=== PATIENT | female | born 1965 | race Caucasian/White ===

== ENCOUNTER 2022-05-30 03:05 | Day surgery (SDC) | payer MEDICARE, SELFPAY ==
[2022-05-20 14:54] VITALS: BMI 28.0
--- NOTE | 2022-05-20 15:06 | PC.NURSE ---
Report to the Outpatient Waiting Room, entrance under the green pavilion located off [facility], at time 6:30 on date 05/30/22. Planned Procedure Time: 8:30. Time changes happen often and if your time is changed the preop area will call you the afternoon before. - You and your visitor will be asked to self-screen and do not enter if you have any COVID symptoms. - Only one visitor is requested with a max of two and NO children visitors are allowed at this time. - The patient visitor may be requested to leave or wait in car when not with patient due to distancing restrictions. - A mask is optional within the hospital. Patients may have clear liquids (water, carbonated beverages, clear teas, apple juice) until 3 hours prior to surgery (5:30) with a maximum of 20 ounces. - No food from midnight until time of surgery Take the following medications with a SIP of water the morning of surgery: CYCLOBENZAPRINE, TIZANIDINE, BACLOFEN, ROPINIROLE, SERTRALINE, DULOXETINE, DIAZEPAM Medications to discontinue per physician: IBUPROFEN Date to take last dose: 05/22/22 (PER PT) Please no make-up, nail belarusian, hairspray, perfume, deodorant, or body powder the day of surgery. No jewelry (including any body piercings) or valuables the day of surgery, leave them at home. Please take a shower or bath the night before, or the morning of, surgery with an antibacterial soap. Wear comfortable, loose fitting clothing. - Jewelry must be removed prior to entering the operating room. Rings and piercings that are not removed may be cut off. - The hospital will not accept responsibility for valuables. - Please leave all valuables, including medications, at home the day of surgery. If you are going home after surgery, a licensed hazmat cdl a driver must drive you home. - NO public transportation without another adult if you receive anesthesia. - We recommend that an adult stay with you for 24 hours following discharge. - We also recommend that you do not drive, make important decision, drink alcoholic beverages, or take any drugs that were not prescribed by your health care provider for at least 24 hours after your discharge time. Follow any additional instructions given to you from your surgeon. If you or anyone in your household have experienced Covid symptoms in the past week, please notify your surgeon or the nurse liaison at the phone number below for possible testing. Telephone instructions given to PT - JAYESH ANGELES and asked if any additional questions and then verbalized understanding. Patient advised to call surgeon office or pre surgery nurse liaison [phone] if any additional questions.
--- NOTE | ~2022-05-30 | XR_ITS ---
Supine and upright views of the abdomen Clinical history: Lithotripsy Findings: Bowel gas pattern is nonspecific. No evidence for obstruction or free air. Curvilinear wire s are noted along the relative expected course of the proximal to mid left ureter. No definite stones identified. Osseous structures are intact. Impression: Curvilinear wires along the relatively expected course of the proximal to mid left ureter. Correlate with prior procedural history. No definite stones identified. Reviewed, dictated and finalized at location . ING ASSISTANT Impression: Curvilinear wires along the relatively expected course of the proximal to mid l eft ureter. Correlate with prior procedural history. No definite stones identified.
[2022-05-30 06:25] VITALS: BP 114/62; PULSE 70; RESP 16; TEMP 36.4; O2SAT 100
--- NOTE | 2022-05-30 06:49 | WPDHPUPDATE1 ---
History and Physical Update Update Date/Time: 05/30/22 06:49 History and Physical has been reviewed, including an updated exam of the patient. There are NO changes in the patient's condition. Risks, benefits, and alternatives have been discussed and questions answered. Patient agrees to proceed with procedure.
[2022-05-30] MEDS: LACTATED RINGERS 1,000 ML 30 ML IV CONT (07:25)
[2022-05-30 07:45] LABS: INR 1.1; Prothrombin Time 13.7 Seconds (11.1-14.7)
[2022-05-30 07:46] LABS: Partial Thromboplastin Time 29.8 SECONDS (22.3-36.8)
[2022-05-30 08:27] LABS: Appearance Urine Cloudy (Clear); Bilirubin Urine Negative (Negative); Blood Urine 3+ (Negative); Color Urine Yellow (Yellow); Glucose Urine UA Negative (Negative); Ketones Urine Negative (Negative); Leukocyte Esterase Ur 3+ LEU/UL (Negative); Nitrate Urine Negative (Negative); Protein Urine 2+ mg/dL (Negative); Specific Grav Ur >= 1.030 (1.001-1.035); Urobilinogen Urine 0.2 mg/dL (<2.0)
[2022-05-30 08:38] LABS: Calcium Oxalate Crystals Urine Present /hpf; Mucus Urine Moderate /lpf; RBC Urine >75 /hpf (0-2); Squamous Epithelial Cell Urine Many /hpf (Few); WBC Urine >75 /hpf
[2022-05-30 08:39] LABS: Add Urine Microscopic? YES
== END 2022-05-30 09:38 | disposition home or self-care (01) ==
PROVIDERS: PCP Family Medicine; Visit Provider Urology
PROC: (CPT 50590; principal; 2022-05-30 08:30)
PROC: (CPT 52352; 2022-05-30 08:30)
DX: N20.0 Calculus of kidney (principal); Z53.8 Procedure and treatment not carried out for other reasons
CPT/HCPCS: 36415; 74018; 81001; 85610; 85730; 87086; 99212; A9270; G0463; J7030; J7120

== ENCOUNTER 2022-06-27 02:52 | Day surgery (SDC) | payer MEDICARE, SELFPAY ==
[2022-06-17 10:02] VITALS: BMI 28.8
--- NOTE | 2022-06-17 10:10 | PC.NURSE ---
Report to the Outpatient Waiting Room, entrance under the green pavilion located off [facility], at time 0800 on date 06/27/22. Planned Procedure Time: 1000. Time changes happen often and if your time is changed the preop area will call you the afternoon before. - You and your visitor will be asked to self-screen and do not enter if you have any COVID symptoms. - Only one visitor is requested with a max of two and NO children visitors are allowed at this time. - The patient visitor may be requested to leave or wait in car when not with patient due to distancing restrictions. - A mask is optional within the hospital at this time. Patients may have clear liquids (water, carbonated beverages, clear teas, apple juice) until 3 hours prior to surgery with a maximum of 20 ounces. - No food from midnight until time of surgery Take the following medications with a SIP of water the morning of surgery: BACLOFEN, CYCLOBENZAPRINE, DIAZEPAM, DULOXETINE, MACROBID, ROPINIROLE, SERTRALINE, TIZANIDINE, TRAMADOL DO NOT STOP ANY OF YOUR OTHER PRESCRIPTION MEDICATIONS PRIOR TO SURGERY EXCEPT THE FOLLOWING Medications to discontinue per physician: VITAMINS/SUPPLEMENTS Date to take last dose: 06/23/22 STOP IBUPROFEN 1 WEEK PRIOR TO SURGERY Please no make-up, nail ecuadorean, hairspray, perfume, deodorant, or body powder the day of surgery. No jewelry (including any body piercings) or valuables the day of surgery, leave them at home. Please take a shower or bath the night before, or the morning of, surgery with an antibacterial soap. Wear comfortable, loose fitting clothing. - Jewelry must be removed prior to entering the operating room. Rings and piercings that are not removed may be cut off. - The hospital will not accept responsibility for valuables. - Please leave all valuables, including medications, at home the day of surgery. If you are going home after surgery, a licensed electric screw driver operator must drive you home. - NO public transportation without another adult if you receive anesthesia. - We recommend that an adult stay with you for 24 hours following discharge. - We also recommend that you do not drive, make important decision, drink alcoholic beverages, or take any drugs that were not prescribed by your health care provider for at least 24 hours after your discharge time. Follow any additional instructions given to you from your surgeon. If you or anyone in your household have experienced Covid symptoms in the past week, please notify your surgeon or the nurse liaison at the phone number below for possible testing. Telephone instructions given to DESMOND - JAYESH ANGELES and asked if any additional questions and then verbalized understanding. Patient advised to call surgeon office or pre surgery nurse liaison [phone] if any additional questions.
--- NOTE | 2022-06-25 10:48 | PM.HPGS ---
History of Present Illness History of Present Illness Consent: Risks, benefits, and alternatives have been discussed and questions answered. Patient agrees to proceed with procedure. Chief complaint: left kidney stones Narrative: Cynthia Shaw is a 56 year old female with a history of recurrent urolithiasis previously managed out state. On 1st evaluation here imaging revealed a 1.3 cm left renal stone. She was scheduled for ESWL a couple weeks ago but presented with urinary tract infection. She she now presents for left ESWL, cystoscopy with left stent placement. She is aware the risk including, not limited to, perinephric hematoma, hematuria, need for additional procedures. Review of Systems Cardiovascular: Cardiovascular: Denies chest pain, Denies lightheadedness, Denies palpitations and Denies dyspnea Respiratory: Respiratory: Denies dyspnea Gastrointestinal: Gastrointestinal: Denies diarrhea, Denies nausea and Denies vomiting Genitourinary: Genitourinary: Denies hematuria and Denies dysuria Endocrine: Endocrine: Denies palpitations PMFSH Social History Social History Smoking status: Former smoker Tobacco type: cigarettes Additional smoking assessment comments: FORMER SOME DAY/SOCIAL SMOKER Alcohol intake: former Alcohol use details: NO ALCOHOL USE SINCE MS DIAGNOSIS Substance use: current Substance use type: marijuana Living arrangements: with family Additional living arrangements comments: AUNT & COUSIN Spiritual care concerns: No Meds Home Medications and Allergies Home Medications Medication Instructions Recorded Confirmed Type baclofen 20 mg tablet 20 mg PO TID 05/20/22 06/17/22 History cyclobenzaprine 10 mg tablet 10 mg PO TID 05/20/22 06/17/22 History diazepam 5 mg tablet 5 mg PO TID 05/20/22 06/17/22 History dicyclomine 10 mg capsule 10 mg PO TID 05/20/22 06/17/22 History dimethyl fumarate 240 mg 240 mg PO BID 05/20/22 06/17/22 History capsule,delayed release (Tecfidera) duloxetine 60 mg capsule,delayed 60 mg PO DAILY 05/20/22 06/17/22 History release furosemide 20 mg tablet 20 mg PO DAILY PRN Edema 05/20/22 06/17/22 History ibuprofen 800 mg tablet 800 mg PO TID 05/20/22 06/17/22 History ropinirole 2 mg tablet 2 mg PO TID 05/20/22 06/17/22 History sertraline 50 mg tablet 50 mg PO DAILY 05/20/22 06/17/22 History tizanidine 4 mg tablet 4 mg PO TID 05/20/22 06/17/22 History tramadol 50 mg tablet 50 mg PO Q6H PRN pain #20 tabs 05/30/22 06/17/22 Rx nitrofurantoin 100 mg PO DAILY 06/17/22 06/17/22 History monohydrate/macrocrystals 100 mg capsule (Macrobid) zinc acetate 25 mg (zinc) capsule 25 mg PO DAILY 06/17/22 06/17/22 History Allergies Allergy/AdvReac Type Severity Reaction Status Date / Time codeine Allergy Swelling Verified 06/17/22 09:58 Penicillins Allergy Swelling Verified 06/17/22 09:58 Sulfa (Sulfonamide Allergy Swelling Verified 06/17/22 09:58 Antibiotics) Exam Const: General: no acute distress Resp: Effort & Inspection: normal respiratory effort GI: Inspection: non-distended GI Palp: No abdominal tenderness and No Guarding due to palpation present (GI) Auscultation: normal bowel sounds Assessment and Plan Assessment and plan (1) Left renal stone: Code(s): N20.0 - Calculus of kidney Status: Acute Assessment and Plan: Cystoscopy, left ureteral stent placement, left ESWL
[2022-06-27] VITALS (7 sets, daily range): BP systolic 107–138; BP diastolic 48–87; PULSE 68–83; RESP 16–20; TEMP 36.3–37.4; O2SAT 97–100
--- NOTE | ~2022-06-27 | XR_ITS ---
XR abdomen/kub 1V 06/27/2022 08:02 Indication: Left-sided lithotripsy. Procedure: KUB Comparison: 05/30/2022 Findings: Bowel gas pattern is nonobstructive. Moderate colonic fecal loading. No definite renal ston es are seen. There is a vascular stent located in the epigastric region. There are curvilinear wires in the left abdomen, possibly embolization coils. Lung bases unremarkable. Impression: 1: Nonobstructive bowel gas pattern. Reviewed, dictated and finalized at location B. [employer] SURVEYOR Impression: 1: Nonobstructive bowel gas pattern.
--- NOTE | 2022-06-27 06:55 | WPDHPUPDATE1 ---
History and Physical Update Update Date/Time: 06/27/22 06:55 History and Physical has been reviewed, including an updated exam of the patient. There are NO changes in the patient's condition. Risks, benefits, and alternatives have been discussed and questions answered. Patient agrees to proceed with procedure.
[2022-06-27] MEDS: LACTATED RINGERS 1,000 ML 30 ML IV CONT (09:00)
[2022-06-27 09:17] LABS: Prothrombin Time 12.7 Seconds (11.1-14.7)
[2022-06-27 09:18] LABS: Partial Thromboplastin Time 29.5 SECONDS (22.3-36.8)
--- NOTE | 2022-06-27 09:18 | WPDANESEPPF ---
Anes - Initial Pre Proc Eval Procedure: Operation Date: 06/27/22 10:00 Proposed Procedures p Left Extracorporeal Shock Wave Lithotripsy, - Pelon Orourke MD s Cystoscopy, Left Stent Placement - Pelon Orourke MD Date/Time: 06/27/22 09:18 Surgeon: Pelon Orourke MD Pre Op Diagnosis: left kidney stones Patient Data Age: 56 Gender: F Height: 1.75 m Weight: 90.4 kg Last Vital Signs Temp 37.4 C 06/27/22 09:09 Pulse 79 06/27/22 09:09 Resp 16 06/27/22 09:09 BP 119/87 06/27/22 09:09 Pulse Ox 100 06/27/22 09:09 O2 Del Method Room Air 06/27/22 09:09 Allergies Allergy/AdvReac Type Severity Reaction Status Date / Time codeine Allergy Swelling Verified 06/27/22 09:07 Penicillins Allergy Swelling Verified 06/27/22 09:07 Sulfa (Sulfonamide Allergy Swelling Verified 06/27/22 09:07 Antibiotics) Home Medications Medication Instructions Recorded Confirmed Type baclofen 20 mg tablet 20 mg PO TID 05/20/22 06/17/22 History cyclobenzaprine 10 mg tablet 10 mg PO TID 05/20/22 06/17/22 History diazepam 5 mg tablet 5 mg PO TID 05/20/22 06/17/22 History dicyclomine 10 mg capsule 10 mg PO TID 05/20/22 06/17/22 History dimethyl fumarate 240 mg 240 mg PO BID 05/20/22 06/17/22 History capsule,delayed release (Tecfidera) duloxetine 60 mg capsule,delayed 60 mg PO DAILY 05/20/22 06/17/22 History release furosemide 20 mg tablet 20 mg PO DAILY PRN Edema 05/20/22 06/17/22 History ibuprofen 800 mg tablet 800 mg PO TID 05/20/22 06/17/22 History ropinirole 2 mg tablet 2 mg PO TID 05/20/22 06/17/22 History sertraline 50 mg tablet 50 mg PO DAILY 05/20/22 06/17/22 History tizanidine 4 mg tablet 4 mg PO TID 05/20/22 06/17/22 History tramadol 50 mg tablet 50 mg PO Q6H PRN pain #20 tabs 05/30/22 06/17/22 Rx nitrofurantoin 100 mg PO DAILY 06/17/22 06/17/22 History monohydrate/macrocrystals 100 mg capsule (Macrobid) zinc acetate 25 mg (zinc) capsule 25 mg PO DAILY 06/17/22 06/17/22 History Laboratory Tests 06/27/22 08:42 PT Pending INR Pending APTT Pending Patient hx anesthesia problems: none Family hx anesthesia problems: none Results Review: All pre-operative results and documents have been reviewed as part of the pre-operative evaluation. [facility] Past Medical History Medical History (Updated 06/27/22 @ 09:19 by Bebeto Bravo MD) Multiple sclerosis Surgical History Surgical History (Updated 06/27/22 @ 09:19 by Bebeto Bravo MD) H/O: hysterectomy Social History Social History Smoking status: Former smoker Tobacco type: cigarettes Additional smoking assessment comments: FORMER SOME DAY/SOCIAL SMOKER Alcohol intake: former Alcohol use details: NO ALCOHOL USE SINCE MS DIAGNOSIS Substance use: current Substance use type: marijuana Living arrangements: with family Additional living arrangements comments: AUNT & COUSIN Spiritual care concerns: No Anes - Eval Final PreProcedure Day of Procedure 06/27/22 09:18 Patient weight: obese Heart: regular rate and rhythm Lungs: clear to auscultation Airway: Mallampati scale class II Last oral intake: >/= 8 hours ASA classification: III Emergent: no Anesthetic plan: proceed Anesthesia type and monitoring: general LMA and standard monitoring Results Review: All pre-operative results and documents have been reviewed as part of the pre-operative evaluation. Informed Consent: The patient's anesthetic plan and its attendant risks and benefits were discussed with the patient/family/POA. Questions were solicited and answers provided to the satisfaction of the patient/family/POA.
[2022-06-27] MEDS: ceFAZolin 2 GM/D5W 50 ML 2 GM/50 ML BAG IVPB (09:44)
--- NOTE | 2022-06-27 10:05 | W.PM.PROC2 ---
Procedure Note - Detailed Date of Procedure 06/27/22 Pre-op Diagnosis Left kidney stones Post-op Diagnosis Same Procedure Performed Cystoscopy, retrograde pyelography, left ESWL and left ureteral stent placement Surgeon Pelon Orourke MD Anesthesia General Description of Procedure patient is brought to the operative suite where she is prepped draped in routine sterile fashion while in a frog-leg position after the uneventful induction of a general LMA anesthetic. A 16 F flexible cystoscope was used to perform flexible cystoscopy. Bladder neck and urethra endoscopically normal. Bladder mucosa is normal and there are no intravesical foreign body or neoplasms. She has a single orthotopic orifice bilaterally. A 0.035 in glidewire was advanced into the left renal pelvis and the angiographic catheter is used to obtain left retrograde pyelography. This clearly outlines the 1.3 cm left renal pelvic stone. A total 2500 shocks using the Dornier Lithotripter are delivered at a power setting of 4. At the termination of the placed a 4.8 F variable length ureteral stent with the proximal coil in renal pelvis distal coil in the bladder. Scopes and wires removed the patient was taken recovery room having tolerated this well. Drains Yes Packing No Pathology None sent
[2022-06-27] MEDS: ONDANSETRON INJ 4 MG/2 ML VIAL IV PUSH (10:48)
== END 2022-06-27 12:19 | disposition home or self-care (01) ==
PROVIDERS: PCP Family Medicine; Visit Provider Urology
PROC: (CPT 50590; principal; 2022-06-27 10:00)
PROC: (CPT 52352; 2022-06-27 10:00)
DX: N20.0 Calculus of kidney (principal); G35 Multiple sclerosis; F12.90 Cannabis use, unspecified, uncomplicated; Z87.891 Personal history of nicotine dependence; E66.9 Obesity, unspecified; Z68.29 Body mass index [BMI] 29.0-29.9, adult
CPT/HCPCS: 52332; 50590; 36415; 74018; 85610; 85730; C1758; C1769; C2617; J0690; J1100; J2250; J2405; J2704; J3010; J7030; J7120; Q9966

== ENCOUNTER 2022-07-15 10:33 | Outpatient (CLI) | payer MEDICARE, SELFPAY ==
--- NOTE | ~2022-07-15 | XR_ITS ---
EXAMINATION: XR abdomen/kub 1V DATE: 07/15/2022 10:57 INDICATION: Kidney stones. TECHNIQUE: A supine view of the abdomen on 2 radiographs was obtained. COMPARISON: Abdomen radiographs 06/27/2012 FINDINGS: There are no dilated loops of bowel. There is a stent overlying L1-L2. There are embolizati on coils in left abdomen in the area of left ovarian vein. There is a left internal ureteral stent in expected position. There is a 2 mm stone in distal left ureter adjacent to the stent. There are phle boliths in the pelvis. IMPRESSION: 1. 2 mm stone in distal left ureter with left internal ureteral stent in expected position. Reviewed, dictated and finalized at location A. IMPRESSION: 1. 2 mm stone in distal left ureter with left internal ureteral stent in expect ed position.
== END 2022-07-15 10:34 | disposition home or self-care (01) ==
PROVIDERS: PCP Family Medicine; Visit Provider Urology
DX: N20.0 Calculus of kidney (principal)
CPT/HCPCS: 74018

== ENCOUNTER 2023-12-03 01:43 | Day surgery (SDC) | payer MEDICARE, SELFPAY ==
[2023-12-01 15:38] VITALS: BMI 29.1
--- NOTE | 2023-12-01 15:40 | PC.NURSE ---
Report to the Outpatient Waiting Room, entrance under the green pavilion located off [facility], at time _1130_ on date _[id number]_. Planned Procedure Time: _130pm_. Time changes happen often and if your time is changed the preop area will call you the afternoon before. - You and your visitor will be asked to self-screen and do not enter if you have any COVID symptoms. - A mask is optional within the hospital at this time. Patients may have clear liquids (water, carbonated beverages, clear teas, apple juice) until 3 hours prior to surgery with a maximum of 20 ounces. - No food from midnight until time of surgery Take the following medications with a SIP of water the morning of surgery: __Baclofen, Duloxetine, Sertraline, Tizanidine, and Diazepam__ DO NOT STOP ANY OF YOUR OTHER PRESCRIPTION MEDICATIONS PRIOR TO SURGERY ?EXCEPT THE FOLLOWING Medications to discontinue per physician Vitamins and Ibuprofen___ Date to take last dose Stop now. Please no make-up, nail nepali, hairspray, perfume, deodorant, or body powder the day of surgery. No jewelry (including any body piercings) or valuables the day of surgery, leave them at home. Please take a shower or bath the night before, or the morning of, surgery with an antibacterial soap. Wear comfortable, loose fitting clothing. - Jewelry must be removed prior to entering the operating room. Rings and piercings that are not removed may be cut off. - The hospital will not accept responsibility for valuables. - Please leave all valuables, including medications, at home the day of surgery. If you are going home after surgery, a licensed special education bus driver must drive you home. - NO public transportation without another adult if you receive anesthesia. - We recommend that an adult stay with you for 24 hours following discharge. - We also recommend that you do not drive, make important decision, drink alcoholic beverages, or take any drugs that were not prescribed by your health care provider for at least 24 hours after your discharge time. Follow any additional instructions given to you from your surgeon. If you or anyone in your household have experienced Covid symptoms in the past week, please notify your surgeon or the nurse liaison at the phone number below for possible testing. Telephone instructions given to __Melben__and asked if any additional questions and then verbalized understanding. Patient advised to call surgeon office or pre surgery nurse liaison [phone] if any additional questions.
[2023-12-03] VITALS (8 sets, daily range): BP systolic 110–120; BP diastolic 54–77; PULSE 61–87; RESP 12–16; O2SAT 95–100; BMI 32.1
--- NOTE | ~2023-12-03 | XR_ITS ---
EXAMINATION: XR surgery orthopedic DATE: 12/03/2023 14:54 INDICATION: ORIF right hallux TECHNIQUE: 3 fluoroscopic images of the right forefoot were obtained during procedure performed by Dr Dejon Martines. Radiologist was not present for the imaging or procedure. The amount of fluoroscopy time u sed during this procedure was 0.7 minutes. COMPARISON: None. FINDINGS: Realignment osteotomy at the neck of the right first proximal phalanx for correction of a prior fract ure malunion. The proximal phalanx is now fixed with a pair of percutaneous pins. The alignment of th e axis of the great toe is now near-anatomic. No acute fractures identified. 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 IMPRESSION: 1. Near-anatomic alignment post realignment osteotomy and pin fixation for correction of a prior firs t proximal phalangeal fracture malunion. Reviewed, dictated and finalized at location A. IMPRESSION: 1. Near-anatomic alignment post realignment osteotomy and pin fixation for corrine ection of a prior first proximal phalangeal fracture malunion.
--- NOTE | 2023-12-03 12:06 | WPDHPUPDATE1 ---
History and Physical Update Update Date/Time: 12/03/23 12:06 History and Physical has been reviewed, including an updated exam of the patient. There are NO changes in the patient's condition. Risks, benefits, and alternatives have been discussed and questions answered. Patient agrees to proceed with procedure.
[2023-12-03] MEDS: KETOROLAC 15 MG/ML VIAL (*BKC) IV PUSH (12:26)
[2023-12-03] MEDS: ACETAMINOPHEN 500 MG TABLET 1000 MG PO (12:26)
--- NOTE | 2023-12-03 12:30 | WPDANESEPPF ---
Anes - Initial Pre Proc Eval Procedure: Operation Date: 12/03/23 13:30 Proposed Procedures p Right Hallux Closed Reduction, Possible Open with Internal Fixation - Jeremy Martines MD Date/Time: 12/03/23 12:30 Surgeon: Jeremy Martines MD Pre Op Diagnosis: RIGHT HALLUX FRACTURE Patient Data Age: 58 Gender: F Height: 1.77 m Weight: 90.9 kg Allergies Allergy/AdvReac Type Severity Reaction Status Date / Time codeine Allergy Swelling Verified 12/01/23 15:25 Penicillins Allergy Swelling Verified 12/01/23 15:25 Sulfa (Sulfonamide Allergy Swelling Verified 12/01/23 15:25 Antibiotics) Home Medications Medication Instructions Recorded Confirmed Type baclofen 20 mg tablet 20 mg PO TID 05/20/22 12/01/23 History cyclobenzaprine 10 mg tablet 10 mg PO TID 05/20/22 12/01/23 History diazepam 5 mg tablet 5 mg PO TID 05/20/22 12/01/23 History dicyclomine 10 mg capsule 10 mg PO TID 05/20/22 12/01/23 History dimethyl fumarate 240 mg 240 mg PO BID 05/20/22 12/01/23 History capsule,delayed release (Tecfidera) duloxetine 60 mg capsule,delayed 60 mg PO DAILY 05/20/22 12/01/23 History release furosemide 20 mg tablet 20 mg PO DAILY PRN Edema 05/20/22 12/01/23 History ibuprofen 800 mg tablet 800 mg PO TID 05/20/22 12/01/23 History ropinirole 2 mg tablet 2 mg PO TID 05/20/22 12/01/23 History sertraline 50 mg tablet 50 mg PO DAILY 05/20/22 12/01/23 History tizanidine 4 mg tablet 4 mg PO TID 05/20/22 12/01/23 History zinc acetate 25 mg (zinc) capsule 25 mg PO DAILY 06/17/22 12/01/23 History potassium citrate 15 mEq (1,620 15 meq PO DAILY #30 tabs 06/27/22 12/01/23 Rx mg) tablet,extended release (Urocit-K 15) Lactobacillus 40-Bifidobact 1 cap PO DAILY 12/01/23 12/01/23 History 3-S.thermophilus 100 billion cell capsule (Probiotic) cholecalciferol (vitamin D3) 50 50 mcg PO DAILY 12/01/23 12/01/23 History mcg (2,000 unit) capsule (Vitamin D3) cyanocobalamin (vitamin B-12) 1,000 mcg PO DAILY 12/01/23 12/01/23 History 1,000 mcg tablet (Vitamin B-12) Laboratory Tests 12/03/23 12:13 Sodium Pending Potassium Pending Chloride Pending Carbon Dioxide Pending Anion Gap Pending BUN Pending Creatinine Pending Estim Creat Clear Calc Pending Estimated GFR Pending Glucose Pending Calcium Pending Patient hx anesthesia problems: none Family hx anesthesia problems: none Results Review: All pre-operative results and documents have been reviewed as part of the pre-operative evaluation. [facility] Past Medical History Medical History AVN (avascular necrosis of bone) Closed fracture of distal end of left fibula with routine healing Closed fracture of left great toe Fracture of distal end of right fibula Fracture of fourth metatarsal bone of right foot Fracture of right great toe with malunion Fracture of second metatarsal bone of right foot Fracture of third metatarsal bone of right foot Left hip pain Left shoulder pain Multiple sclerosis Right hip pain Stress fracture, right tibia, initial encounter for fracture Surgical History Surgical History H/O: hysterectomy Social History Social History Years smoked: 8 Smoking status: Former smoker Tobacco type: cigarettes Smoking end date: 11/30/21 Additional smoking assessment comments: FORMER SOME DAY/SOCIAL SMOKER Alcohol intake: former Alcohol use details: NO ALCOHOL USE SINCE MS DIAGNOSIS Substance use: current Substance use type: marijuana Living arrangements: with family Additional living arrangements comments: AUNT & COUSIN Spiritual care concerns: No Anes - Eval Final PreProcedure Day of Procedure 12/03/23 12:30 Patient weight: overweight Heart: regular rate and rhythm Lungs: c
[2023-12-03 12:34] LABS: Anion Gap 11 mmol/L (4-12); Blood Urea Nitrogen 21 mg/dL (7-17); Calcium 9.5 mg/dL (8.4-10.2); Carbon Dioxide 27 mmol/L (22-30); Chloride 99 mmol/L (98-107); Estimated CRCL calculation 74 ml/min; Estimated Glomerular Filt Rate > 60; Glucose 93 mg/dL (65-110); Potassium 3.5 mmol/L (3.4-5.0); Sodium 137 mmol/L (137-145)
[2023-12-03] MEDS: ceFAZolin 2 GM/D5W 50 ML 2 GM/50 ML BAG IVPB (13:48)
[2023-12-03] MEDS: BUPivacaine HCL 0.5% 10 ML AMP INFILTRATE (14:04)
[2023-12-03] MEDS: LACTATED RINGERS 1,000 ML 30 ML IV CONT ×2 (14:44)
--- NOTE | 2023-12-03 14:51 | P.OP_ITS ---
Procedure Note - Detailed Date of Procedure 12/03/23 Pre-op Diagnosis RIGHT HALLUX FRACTURE Post-op Diagnosis Same Procedure Performed Open reduction internal fixation right hallux proximal phalanx fracture Surgeon Jeremy Martines MD Supply Chain Director 1[employer] medical [employer] assistant Anesthesia General Indications 58-year-old woman with right hallux proximal phalanx fracture with displacement and valgus angulation. Presents for operative treatment. Findings Bridging callus hallux proximal phalanx fracture Description of Procedure Patient identified in the preoperative holding. Informed consent given. Op erative extremity marked. Patient received intravenous antibiotics. Patient brought to the operating room where underwent general anesthetic by anesthesia team. Positioned supine on operating room table. Time-out performed confirming the patient, site of the surgery and the plan. right foot prepped and draped usual sterile surgical fashion using a ChloraPrep skin solution. Fluoroscopy was brought attempted closed reduction the proximal phalanx fracture of the hallux was attempted. Bridging callus prevented complete reduction. 15 blade knife then used to make a longitudinal incision over the dorsal lateral aspect of the proximal phalanx. Hemostasis controlled electrocautery. Dissection carried down to the phalanx. Sanford and osteotome used to loosen the fracture site under fluoroscopic guidance. Fracture was then able to be reduced with varus angulation and medial translation. This was provisionally pinned in checked with image intensification. Fixation then achieved with a 2.0 mm treatment pin placed intramedullary from the distal aspect of the toe in retrograde fashion. Image intensification confirmed well-maintained alignment. Secondary fixation achieved with 0.064 in K-wire x2. Image intensification confirmed final alignment and fixation. Wound irrigated with saline. Closed with 4-0 nylon interrupted suture. Sterile dressing applied. The patient was then woken from anesthesia, extubated and taken to the recovery room in stable condition. All sponge, needle, instrument counts were correct at the end of the case. Implants Arthrex 2.0 mm trim it pin, 0.064 in K-wire x2 Estimated Blood Loss 10 Tourniquet Time Total Tourniquet Time: 0 Drains No Packing No Pathology None sent Complications None Condition Stable Disposition PACU [facility] Billing Surgery - Charge Forward: Surgery Billing ([id number])
[2023-12-03] MEDS: fentaNYL CITRATE INJ (*CRX) 100 MCG/2 ML VIAL 25 MCG IV PUSH ×5 (15:19→15:58)
[2023-12-03] MEDS: oxyCODONE HCL (*CRX) 5 MG TAB IR PO (16:01)
== END 2023-12-03 17:18 | disposition home or self-care (01) ==
PROVIDERS: Student in an Organized Health Care Education/Training Program; Visit Provider Orthopaedic Surgery
PROC: (CPT 28485; principal; 2023-12-03 13:30)
DX: S92.411A Displaced fracture of proximal phalanx of right great toe, initial encounter for closed fracture (principal); F12.90 Cannabis use, unspecified, uncomplicated; Z79.1 Long term (current) use of non-steroidal anti-inflammatories (NSAID); Z98.890 Other specified postprocedural states; Z87.891 Personal history of nicotine dependence; X58.XXXA Exposure to other specified factors, initial encounter
CPT/HCPCS: 28505; 36415; 80048; 99199; A9270; C1713; J0690; J1885; J2250; J3010; J7120